=== PATIENT | female | born 1930 | race Hispanic/Latino ===

== ENCOUNTER 2018-03-17 08:05 | Emergency (ER) | payer OTHER, MEDICARE ==
[~2018-03-17] VITALS: Ht 154.9 cm; Wt 78.5 kg
--- NOTE | 2018-03-17 08:27 | ED DYSPNEA/ASTHMA COMPLAINT ---
History of Present Illness General Chief Complaint: Upper Respiratory Sx/Fever Stated Complaint: SOB, COUGH, CONGESTION, X 3 WEEKS. SEEN PCP Source: patient, family Exam Limitations: poor historian Vital Signs & Intake/Output Vital Signs & Intake/Output Vital Signs Date Time Temp Pulse Resp B/P B/P Pulse O2 O2 Flow FiO2 Mean Ox Delivery Rate 03/17 955 96.0 70 20 134/63 93 Room Air 03/17 0852 Room Air 03/17 0813 98.2 80 20 135/74 92 Room Air Allergies Coded Allergies: amoxicillin (HIVES 03/17/18) clarithromycin (HIVES 03/17/18) Reconcile Medications Acetaminophen With Codeine (Acetaminophen-Cod #3 Tablet) 300 MG-30 MG TABLET 1 TAB PO TIDPRN PRN PAIN (Reported) Aspirin (Aspirin*) 81 MG TAB.CHEW 1 TAB PO DAILY HEART HEALTH (Reported) Atorvastatin Calcium 10 MG TABLET 1 TAB PO DAILY CHOLESTEROL (Reported) Calcium Carbonate/Vitamin D3 (Caltrate 600 + D Tablet) 600 MG-800 TABLET 1 TAB PO DAILY SUPPLEMENT (Reported) Canagliflozin (Invokana) 100 MG TABLET 1 TAB PO DAILY DIABETES (Reported) Cefuroxime Axetil (Cefuroxime) 500 MG TABLET 1 TAB PO BID ANTIBIOTIC, INFECTION (Reported) Cholecalciferol (Vitamin D3) (Vitamin D3) 2,000 UNIT TABLET 1 TAB PO DAILY VITAMIN SUPPORT (Reported) Codeine Phosphate/Guaifenesi (Virtussin AC Liquid) 10 MG-100 MG/5 ML LIQUID 10 ML PO QPM COUGH (Reported) Cyanocobalamin (Vitamin B-12) 1,000 MCG TABLET 1 TAB PO DAILY VITAMIN SUPPORT (Reported) Ferrous Sulfate 325 MG (65 MG IRON) TABLET 1 TAB PO DAILY IRON, VITAMIN ( Reported) Fluticasone/Vilanterol (Breo Ellipta 100-25 Mcg INH) 100 MCG-25 MCG/DOSE BLST.W.DEV 1 INH PO DAILY BREATHING PROBLEMS (Reported) Levothyroxine Sodium 25 MCG TABLET 1 TAB PO DAILY AC THYROID (Reported) Losartan Potassium 50 MG TABLET 1 TAB PO DAILY HEART (Reported) Melatonin 3 MG TABLET 1 TAB PO QPM SLEEP (Reported) Metoclopramide HCl 5 MG TABLET 1 TAB PO TID GI (Reported) [place]-3 Fatty Acids/Fish Oil (Fish Oil 1,000 MG Capsule) 340 MG-1,000 MG CAPSULE 1 CAP PO DAILY SUPPLEMENT (Reported) Omeprazole 40 MG CAPSULE. 1 CAP PO DAILY GI (Reported) Sitagliptin Phos/Metformin HCl (Janumet 50-1,000 MG Tablet) 50 MG-1,000 MG TABLET 1 TAB PO BID DIABETES (Reported) Triage Note: PT FROM HOME C/O SOB PER PT. PT IS BULGARIAN SPEAKING ONLY, PT HAS 2 DAUGHTERS AT SIDE TO INTERPRET. PTS DAUGHTERS STATES PT HAS THAT PT HAS HAD A PRODUCTIVE COUGH WITH YELLOW SPUTUM FOR THE PAST 3 WEEKS. THIS MORNING PT AWOKE SOB, PTS RA 92% 02 IN TRIAGE. NO DISTRESS NOTED. PT IS ABLE TO SPEAK FULL SENTENCES. VSS. AFEBRILE. PT DENIES CP, ARM NUMBNESS/TINGLING, JAW OR BACK PAIN. Triage Nurses Notes Reviewed? yes HPI: Patient presents for evaluation of shortness of breath that began about 3 weeks ago. In addition the patient has had cough and chest congestion. She was seen by her primary care physician on Thursday and was prescribed an antibiotic a cough medication and an inhaler. Patient's shortness of breath continues and seemed to get worse overnight. There has been no associated fever or chest pain. The patient likewise denies leg swelling. Nothing seems to make the patient's dyspnea feel better and exertion seems to make her feel worse. Past History Travel History Traveled to [place] past 21 day No Medical History Any Pertinent Medical History? see below for history Cardiovascular: hypertension, hyperlipidemia Endocrine: diabetes Surgical History Surgical History: non-contributory Psychosocial History What is your primary language Finnish Tobacco Use: Never used Family History Hx Contributory? No Review of Systems Review of Systems Constitutional: Reports: no symptoms. EENTM: Reports: no symptoms. Respiratory: Reports: see HPI. Cardiovascular: Reports: no symptoms. GI: Reports: no symptoms. Genitourinary: Reports: no symptoms. Musculoskeletal: Reports: no symptoms. Skin: Reports: no symptoms. Neurological/Psychological: Reports: no symptoms. Hematologic/Endocrine: Reports: no symptoms. Immunologic/Allergic: Reports: no symptoms. All Other Systems: Reviewed and Negative Physical Exam Physical Exam Respiratory: SEE BELOW Comments: Gen.: Well-nourished, well-developed, no acute respiratory distress. Head: Normocephalic, atraumatic. Eyes: Normal inspection bilaterally Ears: Normal inspection bilaterally Nose: Normal inspection Throat/mouth : Moist mucosa Neck: Supple, full range of motion, no goiter Heart: Regular rate and rhythm, no murmurs rubs or gallops Lungs: Clear to auscultation bilaterally with normal air entry Chest: Nontender Back: Normal range of motion Abdomen: Soft, nontender, nondistended, normal bowel sounds Extremities: Normal range of motion grossly, equal radial pulses, no cyanosis clubbing or edema Neurologic: Cranial nerves grossly intact, speech is clear Skin: warm and dry Psychiatric: Calm, cooperative, no apparent delusions or hallucinations Core Measures ACS in differential dx? No CVA/TIA Diagnosis No Sepsis Present: No Sepsis Focused Exam Completed? No Progress Differential Diagnosis: BRONCHITIS, ASTHMA, copd, EMPHYSEMA, PNEUMONIA, EFFUSION , VIRAL SYNDROME Plan of Care: Orders Procedure Date/time Status Telemetry/Steam Setter 03/17 826 Active URINALYSIS 03/17 826 Complete TSH REFLEX 03/17 826 Complete TROPONIN LEVEL 03/17 826 Complete MAGNESIUM 03/17 826 Complete CBC WITHOUT DIFFERENTIAL 03/17 826 Complete B-TYPE NATRIURETIC PEP (BNP) 03/17 826 Complete BASIC METABOLIC PANEL 03/17 826 Complete EKG 03/17 08 Active Laboratory Tests 03/17/18 0905: Urinalysis LIGHT H, Urine Color YEL, Urine Clarity HAZY H, Urine pH 6.0, Ur Specific [place] 1.015, Urine Protein NEG, Urine Ketones NEG, Urine Nitrite NEG, Urine Bilirubin NEG, Urine Urobilinogen 0.2, Ur Leukocyte Esterase NEG, Ur Microscopic SEDIMENT EXAMINED, Urine RBC RARE, Urine WBC RARE, Ur Epithelial Cells FEW, Urine Bacteria RARE H, Urine Mucus FEW, Urine Hemoglobin NEG, Urine Glucose >=1000 H 03/17/18 0833: Anion Gap 13, Estimated GFR > 60, BUN/Creatinine Ratio 17.1, Glucose 142 H, Calcium 10.3 H, Magnesium 1.0 L, Troponin I < 0.01, Zhy-N-Tjrbntqsyux Pept 79.8, TSH &T3 &Free T4 Intrp 3.290, CBC w Diff NO MAN DIFF REQ, RBC 4.15 L, MCV 88.9, MCH 29.4, MCHC 33.1, RDW 15.6 H, MPV 7.7, Gran % 56.9, Lymphocytes % 27.4 , Monocytes % 8.1, Eosinophils % 7.1 H, Basophils % 0.5, Absolute Granulocytes 5.7, Absolute Lymphocytes 2.8, Absolute Monocytes 0.8 H, Absolute Eosinophils 0.7, Absolute Basophils 0.1 Microbiology 03/17 808 NASOPHARYN: Influenza Virus A & B Rapid Smear - CAN Cancelled: Cancelled via OE: NOT NEEDED PER DR MORTON Diagnostic Imaging: Discussed w/RAD: Radiology Read. CXR Impression: PATIENT: EL LAZARO PRESENT AGE: 88 PATIENT ACCOUNT NO: [id number] : 31 LOCATION: [facility] ORDERING PHYSICIAN: Elver Morton MD SERVICE DATE: 03/17/18 EXAM TYPE: RAD - XRY-CHEST XRAY, TWO VIEWS EXAMINATION: XR CHEST CLINICAL INFORMATION: 88-year-old female with cough and chest congestion. Presumptive diagnosis: CHF, COPD, effusion, "infiltrate". COMPARISON: Chest x-ray on 09/05/2011. TECHNIQUE: AP semierect and lateral views of the chest. FINDINGS: Cardiac size has slightly increased since the prior study. Pulmonary vascularity is normal. There is no evidence of acute pulmonary parenchymal or pleural disease. Incidentally, further weight gain has occurred since 2010. IMPRESSION: Cardiac size has increased since 2010. No CHF. No pulmonary edema. No pneumonia. DICTATED BY: Joel Hargrove MD DATE/TIME DICTATED:03/17/18900 CONTROL CLERK:CRISTINE DATE/TIME TRANSCRIBED:900 CONFIDENTIAL, DO NOT COPY WITHOUT APPROPRIATE AUTHORIZATION. < Electronically signed in Other Vendor System> SIGNED BY: Joel Hargrove MD 03/17/18909 Initial ED EKG: NSR, rate (80), nonspecific ST T wave chg Departure Departure Disposition: HOME OR SELF CARE Condition: Stable Clinical Impression Primary Impression: Viral bronchitis Referrals: Barbara SALCIDO,Aleida Lopez (PCP/Family) Additional Instructions: Continue your current medications. Follow-up with your primary care physician if not improved in the next week. Please understand that you could have a cough for up to 4 weeks after a case of bronchitis. Return if any concerns or sudden worsening. Please note that there might be incidental findings in your evaluation that are unrelated to the current emergency department visit. Please notify your primary care doctor about this emergency department visit in order to obtain and review all of the testing performed so that these incidental findings can be monitored as needed. If you're unable to follow up as outlined in the discharge instructions please return to the emergency department. Thank you for choosing the [facility] Emergency Department for your care. It was a pleasure to serve you today. Elver Morton M.D. [facility] Departure Forms: Customer Survey General Discharge Information Critical Care Note Critical Care Note Critical Care Time: non-applicable
[2018-03-17 08:42] LABS: ABSOLUTE BASOPHIL COUNT 0.1 /CUMM (0.0-0.2); ABSOLUTE EOSINOPHIL COUNT 0.7 /CUMM (0.0-0.7); ABSOLUTE GRANULOCYTE CT 5.7 /CUMM (1.4-6.5); ABSOLUTE LYMPH COUNT 2.8 /CUMM (1.2-3.4); ABSOLUTE MONOCYTE COUNT 0.8 /CUMM (0.10-0.60); BASOPHIL % 0.5 % (0.0-2.0); EOSINOPHIL % 7.1 % (0-5); GRANULOCYTE % 56.9 % (42.2-75.2); HEMATOCRIT 36.9 % (37-47); MEAN CORPUSCULAR HGB 29.4 PG (27.0-31.0); MEAN CORPUSCULAR HGB CONC 33.1 G/DL (33.0-37.0); MEAN CORPUSCULAR VOLUME 88.9 FL (81.0-99.0); MEAN PLATELET VOLUME 7.7 FL (7.4-10.4); PLATELET COUNT 462 /CUMM (130-400); RBC DISTRIBUTION WIDTH 15.6 % (11.5-14.5); RED BLOOD CELL CT 4.15 /CUMM (4.20-5.40); WHITE BLOOD CELL COUNT 10.1 /CUMM (4.8-10.8)
--- NOTE | 2018-03-17 09:10 | RADIOLOGY REPORT ---
EXAMINATION: XR CHEST CLINICAL INFORMATION: 88-year-old female with cough and chest congestion. Presumptive diagnosis: CHF, COPD, effusion, "infiltrate". COMPARISON: Chest x-ray on 09/05/2011. TECHNIQUE: AP semierect and lateral views of the chest. FINDINGS: Cardiac size has slightly increased since the prior study. Pulmonary vascularity is normal. There is no evidence of acute pulmonary parenchymal or pleural disease. Incidentally, further weight gain has occurred since 2011. IMPRESSION: Cardiac size has increased since 2011. No CHF. No pulmonary edema. No pneumonia.
[2018-03-17] MEDS ORDERED: METOCLOPRAMIDE H5 MG PO (09:31)
[2018-03-17] MEDS ORDERED: OMEPRAZOLE40 M1 PO (09:32)
[2018-03-17] MEDS ORDERED: FERROUS SULFAT325 M3 PO (09:32)
[2018-03-17] MEDS ORDERED: LEVOTHYROXINE25 MCG PO (09:32)
[2018-03-17] MEDS ORDERED: ACETAMINOPHEN-1 EAC3 PO (09:32)
[2018-03-17] MEDS ORDERED: JANUMET 50-1,01 EACH PO (09:33)
[2018-03-17] MEDS ORDERED: LOSARTAN POTASS50 M1 PO (09:33)
[2018-03-17] MEDS ORDERED: ATORVASTATIN CA10 M1 PO (09:33)
[2018-03-17] MEDS ORDERED: INVOKANA100 M1 PO (09:33)
[2018-03-17] MEDS ORDERED: VITAMIN B-121000 MC3 PO (09:34)
[2018-03-17] MEDS ORDERED: MELATONIN3 M4 PO (09:34)
[2018-03-17] MEDS ORDERED: ASPIRIN81 M4 PO (09:34)
[2018-03-17] MEDS ORDERED: VITAMIN D32000 UNI1 PO (09:35)
[2018-03-17] MEDS ORDERED: FISH OIL 1,0001 EACH PO (09:35)
[2018-03-17] MEDS ORDERED: CALTRATE 600 +1 EACH PO (09:35)
[2018-03-17] MEDS ORDERED: CEFUROXIME500 MG PO (09:36)
[2018-03-17] MEDS ORDERED: VIRTUSSIN AC L118 M1 PO (09:36)
[2018-03-17] MEDS ORDERED: BREO ELLIPTA 11 EACH PO (09:37)
[2018-03-17 09:55] VITALS: BP 134/63
== END 2018-03-17 10:07 ==
LOC: ERH 08:05
PROVIDERS: Emergency Medicine
DX: J20.8 Acute bronchitis due to other specified organisms (principal)
CPT/HCPCS: 71046; 81001; 87804; 87804-59; 93005; 93010

== ENCOUNTER 2018-05-04 09:35 | Emergency (ER) | payer OTHER, MEDICARE ==
[~2018-05-04] VITALS: Ht 154.9 cm; Wt 83.0 kg
[~2018-05-04 09:35] MED LIST: ACETAMINOPHEN-1 EAC3 PO; ASPIRIN81 M4 PO; ATORVASTATIN CA10 M1 PO; BREO ELLIPTA 11 EACH PO; CALTRATE 600 +1 EACH PO; CEFUROXIME500 MG PO; FERROUS SULFAT325 M3 PO; FISH OIL 1,0001 EACH PO; INVOKANA100 M1 PO; JANUMET 50-1,01 EACH PO; LEVOTHYROXINE25 MCG PO; LOSARTAN POTASS50 M1 PO; MELATONIN3 M4 PO; METOCLOPRAMIDE H5 MG PO; OMEPRAZOLE40 M1 PO; VIRTUSSIN AC L118 M1 PO; VITAMIN B-121000 MC3 PO; VITAMIN D32000 UNI1 PO
--- NOTE | 2018-05-04 10:59 | ED AMS/SEIZURE/WEAK/DIZZY ---
History of Present Illness General Chief Complaint: Dyspnea (COPD, CHF, Other) Stated Complaint: WEAKNESS SOB Source: patient, family Exam Limitations: language barrier Allergies Coded Allergies: amoxicillin (HIVES 03/17/18) clarithromycin (HIVES 03/17/18) Reconcile Medications Acetaminophen With Codeine (Acetaminophen-Cod #3 Tablet) 300 MG-30 MG TABLET 1 TAB PO TIDPRN PRN PAIN (Reported) Albuterol Sulfate (Ventolin Hfa) 90 MCG HFA.AER.AD 2 PUF INH Q4-6 PRN PRN SHORTNESS OF BREATH Aspirin (Aspirin*) 81 MG TAB.CHEW 1 TAB PO DAILY HEART HEALTH (Reported) Atorvastatin Calcium 10 MG TABLET 1 TAB PO DAILY CHOLESTEROL (Reported) Calcium Carbonate/Vitamin D3 (Caltrate 600 + D Tablet) 600 MG-800 TABLET 1 TAB PO DAILY SUPPLEMENT (Reported) Canagliflozin (Invokana) 100 MG TABLET 1 TAB PO DAILY DIABETES (Reported) Cholecalciferol (Vitamin D3) (Vitamin D3) 2,000 UNIT TABLET 1 TAB PO DAILY VITAMIN SUPPORT (Reported) Cyanocobalamin (Vitamin B-12) 1,000 MCG TABLET 1 TAB PO DAILY VITAMIN SUPPORT (Reported) Ferrous Sulfate 325 MG (65 MG IRON) TABLET 1 TAB PO DAILY IRON, VITAMIN ( Reported) Fluticasone/Vilanterol (Breo Ellipta 100-25 Mcg INH) 100 MCG-25 MCG/DOSE BLST.W.DEV 1 INH PO DAILY BREATHING PROBLEMS (Reported) Levothyroxine Sodium 25 MCG TABLET 1 TAB PO DAILY AC THYROID (Reported) Losartan Potassium 50 MG TABLET 1 TAB PO DAILY HEART (Reported) Melatonin 3 MG TABLET 1 TAB PO QPM SLEEP (Reported) Metoclopramide HCl 5 MG TABLET 1 TAB PO TID GI (Reported) [place]-3 Fatty Acids/Fish Oil (Fish Oil 1,000 MG Capsule) 340 MG-1,000 MG CAPSULE 1 CAP PO DAILY SUPPLEMENT (Reported) Omeprazole 40 MG CAPSULE.DR 1 CAP PO DAILY GI (Reported) Sitagliptin Phos/Metformin HCl (Janumet 50-1,000 MG Tablet) 50 MG-1,000 MG TABLET 1 TAB PO BID DIABETES (Reported) Triage Note: 88 YO FEMALE TO TRIAGE FOR EVAL OF WEAKNESS AND SOB SINCE THIS AM. STATES THE SOB IS WORSE WITH LAYING FLAT. DENIES ANY RESP HX. RA SATS 98%. DENIES CHEST PAIN. DENIES ABD PAIN/NVD. EKG COMPLETED ON ARRIVAL. Triage Nurses Notes Reviewed? yes Onset: Abrupt Duration: gone now, intermittent Timing: recent history Severity: moderate Severity Numbers: 5 HPI: Patient is an 88-year-old female with past medical history of hypertension hyperlipidemia and diabetes who presents emergency room with daughter which history is limited due to language barrier and which daughter states that for a few weeks now patient has been complaining of intermittent shortness of breath that wakes her up usually in the morning lasts for approximately 15-20 minutes. Patient states that today the breathing was difficult while it woke her up this morning and lasted approximately 30 minutes patient had associated symptoms of weakness however throughout the entire day since her symptoms began there is been no exacerbation. Denies any fever chills cough chest pain arm pain jaw pain nausea vomiting leg swelling hemoptysis back pain. Patient currently states that she is asymptomatic and denies any current symptoms. (Naun Barraza) Vital Signs & Intake/Output Vital Signs & Intake/Output Vital Signs Date Time Temp Pulse Resp B/P B/P Pulse O2 O2 Flow FiO2 Mean Ox Delivery Rate 05/04 1227 98.4 67 20 153/68 95 Room Air 05/04 0947 98.6 81 18 123/69 98 Room Air (Selene SALCIDO,Elver Lopez) Past History Travel History Traveled to [place] past 21 day No Medical History Any Pertinent Medical History? see below for history Cardiovascular: hypertension, hyperlipidemia Endocrine: diabetes Surgical History Surgical History: non-contributory Psychosocial History What is your primary language Slovak Tobacco Use: Never used Family History Hx Contributory? No (Naun Barraza) Review of Systems Review of Systems Constitutional: Reports: no symptoms. EENTM: Reports: no symptoms. Respiratory: Reports: see HPI, short of breath. Cardiovascular: Reports: no symptoms. GI: Reports: no symptoms. Genitourinary: Reports: no symptoms. Musculoskeletal: Reports: no symptoms. Skin: Reports: no symptoms. Neurological/Psychological: Reports: no symptoms. Hematologic/Endocrine: Reports: no symptoms. Immunologic/Allergic: Reports: no symptoms. All Other Systems: Reviewed and Negative (Naun Barraza) Physical Exam Physical Exam General Appearance: no apparent distress, alert, comfortable Head: atraumatic Eyes: Bilateral: normal appearance. Ears, Nose, Throat: hearing grossly normal Respiratory: normal breath sounds, chest non-tender, no respiratory distress Cardiovascular: regular rate/rhythm Gastrointestinal: normal bowel sounds, soft, non-tender Extremities: normal range of motion Neurologic/Psych: no motor/sensory deficits, awake, alert Skin: intact, normal color, warm/dry Core Measures ACS in differential dx? Yes CVA/TIA Diagnosis Yes Sepsis Present: No Sepsis Focused Exam Completed? No (Suzan PARRA,Naun) Progress Differential Diagnosis: anemia, benign positional vertigo, CVA/stroke, dehydration, drug intoxication, encephalitis, electrolyte imbalance, GI bleed, hypoglycemia, hypoxia, intracranial Hem., intracranial mass/tumor, labrynthitis, meningitis, Meniere's disease, migraine MORGAN, multiple sclerosis, pneumonia, postural hypotension, presyncope, post-traumatic vertigo, sepsis, seizure disorder, subarachnoid Hem., UTI/pyelo, vertebrobasilar insuff Diagnostic Imaging: Viewed by Me: Radiology Read. CXR Impression: SEE COMMENTS Initial ED EKG: normal QRS complex, 80 BPM Prior EKG: unchanged Comments: PATIENT: EL LAZARO PRESENT AGE: 88 PATIENT ACCOUNT NO: [id number] : 31 LOCATION: [facility] ORDERING PHYSICIAN: Naun PARRA SERVICE DATE: 05/04/181202 EXAM TYPE: RAD - XRY-CHEST XRAY, TWO VIEWS EXAMINATION: XR CHEST CLINICAL INFORMATION: Shortness of breath. COMPARISON: Chest x-ray dated 03/17/2018 and 09/05/2011. TECHNIQUE: 2 views of the chest were obtained. FINDINGS: The cardiomediastinal silhouette is enlarged, unchanged. Calcification of the aorta is seen. Lungs bilaterally are symmetrically hyperinflated with slight thickening of the central airways, consistent with obstructive lung disease. No focal consolidation, effusion or pneumothorax is seen. Moderate vertebral spondylosis is seen throughout the thoracic spine. IMPRESSION: 1. Cardiomegaly and atherosclerotic aorta again seen. 2. Lung findings suspicious for obstructive lung disease. Clinical correlation requested. 3. No acute pulmonary process seen. DICTATED BY: Alee Santana MD DATE/TIME DICTATED:05/04/18 1248 ELECTRONIC REPAIR TROUBLESHOOTER:CRISTINE (Suzan PARRA,Naun) Plan of Care: Orders Procedure Date/time Status TROPONIN LEVEL 05/04 110 Complete D-DIMER 05/04 110 Complete COMPREHENSIVE METABOLIC PANEL 05/04 1103 Complete CBC WITHOUT DIFFERENTIAL 05/04 1103 Complete EKG 05/04 0937 Active Laboratory Tests 05/04/18 1120: Anion Gap 12, Estimated GFR > 60, BUN/Creatinine Ratio 22.5, Glucose 131 H, Calcium 10.4 H, Total Bilirubin 0.3, AST 52 H, ALT 52, Alkaline Phosphatase 57 , Troponin I < 0.01, Total Protein 6.8, Albumin 4.0, Globulin 2.8, Albumin/ Globulin Ratio 1.4, D-Dimer High Sensitivty < 200, CBC w Diff NO MAN DIFF REQ, RBC 4.20, MCV 89.2, MCH 29.2, MCHC 32.7 L, RDW 15.0 H, MPV 7.8, Gran % 59.9, Lymphocytes % 23.9, Monocytes % 8.9, Eosinophils % 6.9 H, Basophils % 0.4, Absolute Granulocytes 5.2, Absolute Lymphocytes 2.1, Absolute Monocytes 0.8 H, Absolute Eosinophils 0.6, Absolute Basophils 0 Patient upon initial presentation is resting complaint bedside no apparent distress no respiratory distress clear lungs auscultation EKG was changed and unremarkable from previous.\Due to history of present illness and exam findings there is suspicion of sleep apnea However blood work and imaging will be obtained. Patient's engineering test specialist is Dr. ORTIZ no overt findings of CHF exacerbation of her cardiomegaly was seen on chest x-ray no pleural effusions no leg swelling, patient again has been resting comfortably at bedside she was strongly advised to follow-up with her engineering test specialist patient was given all copies of imaging EKG and blood work from the emergency room Patient also was advised to follow-up with Dr. Gregory for chest x-ray findings concerning for COPD however no COPD exacerbations noted at this time clear lungs auscultation Upon discharge patient looks well no apparent distress and will comply with discharge instructions and had no questions (Naun Barraza) (Selene SALCIDO,Elver Lopez) Departure Departure Disposition: HOME OR SELF CARE Condition: Stable Clinical Impression Primary Impression: Dyspnea Secondary Impressions: COPD (chronic obstructive pulmonary disease), Sleep apnea Referrals: Barbara SALCIDO,Aleida Lopez (PCP/Family) Anthony Gregory MD Additional Instructions: As discussed today please follow-up with packer denture Dr. Gregory, if symptoms recur begin a prescription of Ventolin inhaler to improve your symptoms, if symptoms worsen or if you develop new concerning symptoms return to emergency room. Follow-up tomorrow with your engineering test specialist please provide THEM with all imaging and blood work and EKG provided to you in the emergency room Prescriptions waiting at [facility] Departure Forms: Customer Survey General Discharge Information Prescriptions: Current Visit Scripts Albuterol Sulfate (Ventolin Hfa) 2 PUF INH Q4-6 PRN PRN SHORTNESS OF BREATH #1 INHAL (Suzan PARRA,Naun) PA/BINMAN Co-Sign Statement Statement: ED Attending supervision documentation- [X] I saw and evaluated the patient. I have also reviewed all the pertinent lab results and diagnostic results. I agree with the findings and the plan of care as documented in the PA's/BINMAN's documentation. Patient presents for evaluation of shortness of breath. Physical examination reveals clear breath sounds bilaterally with good air entry. There is no lower extremity edema. [] I have reviewed the ED Record and agree with the PA's/BINMAN's documentation. [] Additions or exceptions (if any) to the PAs/BINMAN's note and plan are summarized below: [] (Selene SALCIDO,Elver Lopez)
[2018-05-04 11:41] LABS: ABSOLUTE BASOPHIL COUNT 0 /CUMM (0.0-0.2); ABSOLUTE EOSINOPHIL COUNT 0.6 /CUMM (0.0-0.7); ABSOLUTE GRANULOCYTE CT 5.2 /CUMM (1.4-6.5); ABSOLUTE LYMPH COUNT 2.1 /CUMM (1.2-3.4); ABSOLUTE MONOCYTE COUNT 0.8 /CUMM (0.10-0.60); BASOPHIL % 0.4 % (0.0-2.0); EOSINOPHIL % 6.9 % (0-5); GRANULOCYTE % 59.9 % (42.2-75.2); HEMATOCRIT 37.5 % (37-47); MEAN CORPUSCULAR HGB 29.2 PG (27.0-31.0); MEAN CORPUSCULAR HGB CONC 32.7 G/DL (33.0-37.0); MEAN CORPUSCULAR VOLUME 89.2 FL (81.0-99.0); MEAN PLATELET VOLUME 7.8 FL (7.4-10.4); PLATELET COUNT 468 /CUMM (130-400); WHITE BLOOD CELL COUNT 8.7 /CUMM (4.8-10.8)
--- NOTE | 2018-05-04 12:55 | RADIOLOGY REPORT ---
EXAMINATION: XR CHEST CLINICAL INFORMATION: Shortness of breath. COMPARISON: Chest x-ray dated 03/17/2018 and 09/05/2011. TECHNIQUE: 2 views of the chest were obtained. FINDINGS: The cardiomediastinal silhouette is enlarged, unchanged. Calcification of the aorta is seen. Lungs bilaterally are symmetrically hyperinflated with slight thickening of the central airways, consistent with obstructive lung disease. No focal consolidation, effusion or pneumothorax is seen. Moderate vertebral spondylosis is seen throughout the thoracic spine. IMPRESSION: 1. Cardiomegaly and atherosclerotic aorta again seen. 2. Lung findings suspicious for obstructive lung disease. Clinical correlation requested. 3. No acute pulmonary process seen.
[2018-05-04] MEDS ORDERED: VENTOLIN HFA18 GM INH (13:10)
[2018-05-04 13:46] VITALS: BP 134/66
== END 2018-05-04 13:47 ==
LOC: ERH 09:35
PROVIDERS: Physician Assistant
DX: J44.9 Chronic obstructive pulmonary disease, unspecified (principal); G47.30 Sleep apnea, unspecified; R06.00 Dyspnea, unspecified
CPT/HCPCS: 71046; 93005; 93010